=== PATIENT | male | born 1975 | race Caucasian/White ===

== ENCOUNTER 2022-01-27 09:44 | Emergency (ER) | payer OTHER ==
[~2022-01-27] VITALS: Ht 175.3 cm; Wt 109.8 kg
[2022-01-27 09:53] VITALS: BP 151/101
[2022-01-27] MEDS ORDERED: KETOROLAC 30 MG/ML VIAL IVP ONE (10:20)
[2022-01-27] MEDS ORDERED: NACL 0.9% 1,000 ML IV ONE (10:20)
[2022-01-27] MEDS ORDERED: METOCLOPRAMIDE 10 MG/2 ML INJ VIAL IVP ONE (10:20)
[2022-01-27] MEDS ORDERED: diphenhydrAMINE 50 MG/ML VIAL IVP ONE (10:20)
--- NOTE | 2022-01-27 10:20 | NUR ---
PT RECEIVED, CARE ASSUMED. PT PRESENT SELF TO ER WITH C/O RIGH JAW PAIN AND RIGHT JAW SWELLING. PT IN ROOM AWAITING TO BE SEEN BY
--- NOTE | 2022-01-27 10:45 | NUR ---
IV PLACED, 20G IV TO LEFT HAND.
[2022-01-27 11:00] LABS: BASOPHILS # (AUTO) 0.1 K/uL (0.00-0.22); BASOPHILS % (AUTO) 0.9 % (0.0-2.0); EOSINOPHILS # (AUTO) 0.3 K/uL (0-0.4); EOSINOPHILS % (AUTO) 3.9 % (0.0-4.0); HEMATOCRIT 46.1 % (36-52); HEMOGLOBIN 15.7 g/dL (12.0-18.0); LYMPHOCYTES # (AUTO) 1.6 K/uL (2.0-11.5); LYMPHOCYTES % (AUTO) 22.1 % (20.5-51.1); MEAN CORPUSCULAR HEMOGLOBIN 30 pg (27-31); MEAN CORPUSCULAR HGB CONC 34 g/dL (33-37); MEAN CORPUSCULAR VOLUME 87.4 fL (80-94); MONOCYTES # (AUTO) 0.7 K/uL (0.8-1.0); MONOCYTES % (AUTO) 9.6 % (1.7-9.3); NEUTROPHILS # (AUTO) 4.7 K/uL (1.8-7.7); NEUTROPHILS % (AUTO) 63.5 % (42.2-75.2); PLATELET COUNT (AUTO) 302 K/uL (140-450); RED BLOOD CELL COUNT(AUTO) 5.27 MIL/uL (4.20-6.10); RED CELL DISTRIBUTION WIDTH 13.3 % (11.6-13.7); WHITE BLOOD COUNT (AUTO) 7.3 K/uL (4.8-10.8)
[2022-01-27 11:26] LABS: ALBUMIN 3.3 g/dL (3.4-5.0); CARBON DIOXIDE 25.1 mmol/L (21-32); CREATININE 0.9 mg/dL (0.6-1.3); TOTAL BILIRUBIN 0.3 mg/dL (0.0-1.0)
[2022-01-27 11:29] LABS: ANION GAP 11.7 (8-16); POTASSIUM 3.8 mmol/L (3.5-5.1)
[2022-01-27] MEDS ORDERED: AMOX-1230 PO (13:01)
[2022-01-27] MEDS ORDERED: AMOXIL/CLAVULANATE 875/125 MG 1 TAB PO ONE (13:10)
--- NOTE | 2022-01-27 13:30 | NUR ---
PT LEFT WITHOUT MEDS.
[2022-01-27 13:39] VITALS: BP 131/89
== END 2022-01-27 13:39 | disposition home or self-care (01) ==
LOC: MED 09:44
DX: J01.90 Acute sinusitis, unspecified (principal); G43.909 Migraine, unspecified, not intractable, without status migrainosus
CPT/HCPCS: 36415; 70487; 80053; 83605; 85025; 87040; 96374; 96375; 99285; J1200; J1885; J2765; Q9967; J7030